=== PATIENT | male | born 1955 | race Caucasian/White ===

== ENCOUNTER 2016-07-02 07:24 | Inpatient (IN) | payer BC ==
[~2016-07-02] VITALS: Ht 175.3 cm; Wt 100.4 kg
[2016-07-02] VITALS (8 sets, daily range): BP systolic 101–157; BP diastolic 57–76
--- NOTE | ~2016-07-02 | PR ---
[place], [place] PROGRESS NOTE NAME: ANDI SALDANA UNIT #: [id number] ROOM: 519 DOCTOR: CONCEPCIÓN MONTOYA MD BIRTHDATE: [birth year] DOS: 07/05/2016 REASON FOR FOLLOWUP: Complicated UTI. SUBJECTIVE: The patient is feeling much better and wants to go home, could not have the stent removed because the urologist was not available. Afebrile, tolerating antibiotics, reports no side effects. A 10 review of systems otherwise negative. PHYSICAL EXAMINATION: VITAL SIGNS: Show temperature of 97.5, heart rate of 83, blood pressure of 160/98, respiratory rate of 20, pulse ox of 96 on room air. GENERAL APPEARANCE: Awake, alert, oriented to time, place and person. No acute distress. HEENT: Oral cavity moist and intact. NECK: Supple, no JVD, no lymphadenopathy. HEART: Regular rate and rhythm. S1, S2 normal. No murmurs, gallops or rubs. LUNGS: Clear to auscultation. Equal air entry bilaterally. ABDOMEN: Soft, nontender, midline wound with gem, proximal part with mild serosanguineous drainage. EXTREMITIES: Warm to touch. Pulses palpated. LABORATORY DATA: Reviewed. WBC of 6.9, hemoglobin of 9.4, platelets 332. Chemistry showing BUN of 8, creatinine of 0.62. MICROBIOLOGY: Urine culture showing Enterococcus faecalis, pansensitive. ASSESSMENT AND PLAN: 1. Acute complicated urinary tract infection with the left ureteral stent, currently on IV Zosyn. We will switch to p.o. Augmentin twice daily for 10 more days upon discharge. Follow up with Dr. Booker for left ureteral stent exchange. Follow up with myself if needed. Thank you for this consult. Okay to discharge from ID point of view. Please call with questions or concerns. 2. Slow healing postsurgical wound of the abdomen. Did not recommend any antibiotics for the same. Continue follow up with Dr. Marroquin for the same and waiting for healing from inside out. [place], [place] PROGRESS NOTE NAME: ANDI SALDANA UNIT #: [id number] ROOM: 519 DOCTOR: CONCEPCIÓN MONTOYA MD BIRTHDATE: [birth year] CONCEPCIÓN MONTOYA MD CM:LUIS ENRIQUE [phone] CONCEPCIÓN MONTOYA MD 07/06/16 0213 interface
--- NOTE | ~2016-07-02 | CON ---
[place], [place] REPORT OF CONSULTATION NAME: ANDI SALDANA UNIT #: [id number] ROOM: 519 DOCTOR: CONCEPCIÓN MONTOYA MD BIRTHDATE: [birth year] DOS: 07/03/2016 REASON FOR CONSULTATION: Possible UTI with pyelonephritis. [place], [place] REPORT OF CONSULTATION NAME: ANDI SALDANA UNIT #: [id number] ROOM: 519 DOCTOR: CONCEPCIÓN MONTOYA MD BIRTHDATE: [birth year] CONSULTING PHYSICIAN: Dr. Magen Larson. CHIEF COMPLAINT: This is a 60-year-old man who was admitted with a chief complaint of frequency in urination, nausea, and vomiting. HISTORY OF PRESENTING ILLNESS: A 60-year-old man with a recent history of open abdominal surgery on 06/15/2016 for partial small-bowel obstruction with anastomosis and history of rectal carcinoma with colostomy, now presenting with nausea and vomiting of 3 days' duration. He also reports increased frequency of urination. He had fever and shaking chills at home since Saturday. He also had mild cough with some productive sputum. He was brought in by [facility] for evaluation of nausea and vomiting. He had a temperature of 101 axillary in the Emergency Room and was admitted. He was started on IV ceftriaxone and ID was consulted for possible UTI. PAST MEDICAL HISTORY: Positive for history of rectal carcinoma, status post chemo and radiation, depression, diabetes mellitus, dyslipidemia, hypertension, hemangioma of the liver, hydronephrosis of left side, proteinuria, posttraumatic stress disorder, small-bowel obstruction. PAST SURGICAL HISTORY: History of ureteral stent, which is being changed every 6 weeks by Urology, cholecystectomy, colectomy with colostomy bag, and MediPort insertion. SOCIAL HISTORY: Alcohol abuse in the past, now no longer a drinker, former smoker, occasional marijuana use. FAMILY HISTORY: Father had esophageal cancer. Mother had GI bleed. ALLERGIES: No known drug allergies. HOME MEDICATIONS: Reviewed includes zolpidem, trazodone, Aldactone, Zoloft, K-tab, Prilosec, metformin, lisinopril, [place], hydrochlorothiazide, betamethasone topical, vitamin D, and atorvastatin. REVIEW OF SYSTEMS: A 14-point review of systems is otherwise negative unless otherwise specified in the HPI. PHYSICAL EXAMINATION: VITAL SIGNS: Showed temperature of 98.4, heart rate of 87, blood pressure 109/62, respiratory rate of 20, pulse ox of 97 on room air. GENERAL APPEARANCE: Awake, alert, oriented to time, place, and person, in no acute distress. HEENT: Oral cavity moist. NECK: Supple, no JVD, no lymphadenopathy. HEART: Regular rate and rhythm. S1 and S2 normal. No murmurs, gallops or rubs. LUNGS: Clear to auscultation. Equal air entry bilaterally. ABDOMEN: Soft, nontender, nondistended. Bowel sounds heard. Midline incision with gem with mild oozing at the proximal portion. No rebound tenderness or [place], [place] REPORT OF CONSULTATION NAME: ANDI SALDANA UNIT #: [id number] ROOM: [facility] DOCTOR: CONCEPCIÓN MONTOYA MD BIRTHDATE: [birth year] guarding, no CVA tenderness. EXTREMITIES: Warm to touch. Pulses palpated bilaterally equal. No evidence of skin ulcers or rashes. LABORATORY DATA: Reviewed. WBC of 12.7, it was 17.6 on admission; hemoglobin of 9.4; platelets was 330. Chemistry showing BUN of 9 and creatinine 0.80. AST of 18, ALT of 34, alkaline phosphatase of 133, lipase is normal. IMAGING: Reviewed. Ultrasound showing left ureteral stent with hydronephrosis, unchanged, minimal hydronephrosis. Chest x-ray, no infiltrates. MICROBIOLOGY: Urine culture pending. Blood culture pending. Urinalysis shows pyuria. ASSESSMENT AND PLAN: 1. Possible acute complicated urinary tract infection with ascending pyelonephritis. UA shows pyuria. Urine culture is pending, currently on ceftriaxone. We will switch him to Zosyn every q.6h. Wait for urine culture and adjust antibiotics accordingly. Urology is consulted. They are waiting for ultrasound results and culture results to be final. Plan to exchange of stent may be next week. 2. History of recent small-bowel obstruction and open abdominal surgery. The patient has a colostomy filled with a normal-looking stools. The incision still has not completely healed. If he continues to feel worse in the next 48 hours, I will obtain a CAT scan of the abdomen and pelvis with contrast to evaluate for any fistula. Thank you for this consult. I will continue to follow. CONCEPCIÓN MONTOYA MD CM:CONSTR:REPORT OF CONSULTATION 1653 08/10/16 1217 interface
--- NOTE | ~2016-07-02 | PR ---
[place], [place] PROGRESS NOTE NAME: ANDI SALDANA UNIT #: [id number] ROOM: 519 DOCTOR: JEFFERY MARROQUIN MD BIRTHDATE: [birth year] DOS: 07/05/2016 SUBJECTIVE: This is a patient that is a postop patient for 2 weeks who had a repair up of paracolostomy and large abdominal wall hernia. I had been seeing him in the clinic and his problem is upper end of the incision was leaking and I discussed with the family and told them to put an ostomy bag on it. However, it was not done. Now, he is in hospital for some other issues and they called me again. I saw him yesterday and I told the nurse to take the clips out and put a half-inch Steri-Strips on with pressure dressing on the incision where there is oozing. I saw him this morning again. They did a dressing on it, but is not pressure dressing. It is just the tapes are hanging loose. It is on the whole abdomen and no pressure dressing though we told the nurse to do it yesterday. I took the dressing off. There is minimal drainage. I showed the nurse how to do the dressing and I did put in an order also how to do it. The nurse is supposed to change it only that if the fluid dripping or leaking, otherwise if there is just spotting, I told them not to change, and I showed the nurse exactly how to do it. I put the first 4 x 4 folded three times and on top is a 4 x 4 folded twice and another 4 x 4 on top folded twice and put tape, covered it. Rest of the incision should be kept open because there is no leakage. Lower end incision oozes. It is not drainage, but because they did skin fold and macerated 2 edges together, so they should put a 4 x 4 just to keep the pressure off from 2 surface rubbing each other. From my stand plan, I think there is nothing going on surgically that I should take care of him. He is already on antibiotics, so doing a culture probably would not help, but they called me two times anyway and we did culture anyway. If it grows something different than what the antibiotic covering, I think we can change the antibiotic. He has a Ray catheter in, and I think that could have been removed, but I am told that he has a stent in his bladder and left ureter due to postradiation changes. Problem is that because of the catheter, he is not ambulating. He is lying in the bed for the last so many days. From my standpoint, I think there is nothing else that I could add on to and if there is some growth of bacteria in the wound, we can always change the antibiotics. [place], [place] PROGRESS NOTE NAME: ANDI SALDANA UNIT #: [id number] ROOM: [facility] DOCTOR: JEFFERY MARROQUIN MD BIRTHDATE: [birth year] Jeffery Marroquin MD CM:PNTRANS [phone] JEFFERY MARROQUIN MD 07/05/161938 interface
--- NOTE | ~2016-07-02 | CON ---
[place], [place] REPORT OF CONSULTATION NAME: ANDI SALDANA UNIT #: [id number] ROOM: 519 DOCTOR: JEFFERY MARROQUIN MD BIRTHDATE: [birth year] DOS: 07/04/2016 REASON FOR CONSULTATION: Abdominal wound. HISTORY OF PRESENT ILLNESS: The patient is status post repair of paracolostomy hernia and abdominal hernia. Postop he had developed some serous drainage from the upper end of the incision and I had seen him in clinic. I told his and him that they should put a small colostomy bag to get the fluid and hence do not have to then change dressing; however, they did not do it probably and now he is here with UTI I am told. When I went to see him, there is no bag on it, and the upper incision looks okay. There are still clips on there, a little bit of erythema there and some serous drainage coming out. PHYSICAL EXAMINATION: My exam is limited to abdominal wall. RECOMMENDATION: My recommendation is as it was before and we removed the clips today, put half-inch Steri-Strips. I told the nurse that if he drains, then we should put a colostomy bag on it rather than changing the dressing again and again. We will follow. Jeffery Marroquin MD CM:CONSTR:REPORT OF CONSULTATION 1343 08/10/16 1214 interface
[~2016-07-02 07:24] MED LIST: AMBIEN10 M1 PO; AMBIEN5 MG PO; ATORVASTATIN CA80 M1 PO; BETAMETHASONE D1 CR2 TP; CELEXA20 MG PO; COMPAZINE10 M1 PO; DITROPAN XL5 MG PO; K-TAB20 MEQ PO; LISINOPRIL5 MG PO; METFORMIN500 MG PO; NORCO 5-325 TA1 EACH PO; PRILOSEC20 M1 PO; TRAZODONE50 MG PO; VITAMIN D5000 I3 PO; VITAMINS FOR HA1 CAP PO; ZOFRAN8 M1 PO; ZOLOFT100 MG PO; [UNRECOGNIZED DRUG - OTHER] IV
[2016-07-02 07:55] LABS: HEMATOCRIT 35.3 % (42.0-52.0); HEMOGLOBIN 11.6 g/dl (14.0-18.0); MEAN CELL VOLUME 78.8 fl (80.0-94.0); MEAN CORPUSCULAR HGB 25.9 pg (27.0-31.0); MEAN CORPUSCULAR HGB CONC 32.9 g/dl (33.0-37.0); MEAN PLATELET VOLUME 8.8 fl (9.6-12.3); PLATELET COUNT AUTOMATED 436 10*3/uL (130-400); RED BLOOD COUNT 4.48 10*6/uL (4.50-5.90); RED CELL DISTRI WIDTH 14.6 % (0-14.5); WHITE BLOOD COUNT 17.6 10*3/uL (4.8-10.8)
[2016-07-02 08:10] LABS: ALBUMIN 2.7 gm/dl (3.1-4.5); ALKALINE PHOSPHATASE 164 U/L (45-117); BILIRUBIN, TOTAL 0.9 mg/dl (0.2-1.0); BUN 13 mg/dl (7-24); CARBON DIOXIDE 25 mmol/L (21-32); CHLORIDE 92 mmol/L (98-107); EST GLOM FILT AFRICAN AMERICAN > 60 ml/min; GLUCOSE 346 mg/dL (65-99); SGOT/AST 42 IU/L (3-35); SGPT/ALT 50 U/L (12-78); SODIUM 135 mmol/L (136-145); TOTAL PROTEIN 7.6 gm/dL (6.4-8.2)
[2016-07-02 08:11] LABS: HYPOCHROMIA SLIGHT; MICROCYTOSIS SLIGHT; MONOCYTE # 0.5 10*3/uL (0.1-1.0); NEUTROPHIL # 17.1 10*3/uL (2.3-7.9); NEUTROPHILS 97 % (47-73); OVALOCYTES FEW; PLATELET SUFFICIENCY HIGH (NORMAL); TOTAL CELLS COUNTED 100 #CELLS
[2016-07-02] MEDS ORDERED: ALDACTONE25 MG PO (08:20)
[2016-07-02] MEDS ORDERED: HYDROCHLOROTHIA25 M1 PO (08:20)
[2016-07-02 09:27] LABS: BILIRUBIN 1+ (NEGATIVE); BLOOD 3+ (NEGATIVE); CLARITY CLOUDY (CLEAR); COLOR ORANGE (YELLOW); GLUCOSE NEGATIVE (NEGATIVE); KETONE NEGATIVE (NEGATIVE); NITRITE POSITIVE (NEGATIVE); PROTEIN 3+ (NEGATIVE); SPECIFIC GRAVITY 1.025 (1.005-1.030)
[2016-07-02 09:36] LABS: LEUKO ESTERASE 1+ (NEGATIVE)
[2016-07-02 09:40] LABS: WBC TNTC wbc/hpf (0-5)
[2016-07-02 09:41] LABS: BACTERIA 2+; EPITHELIAL CELLS 30-40; URINE REFLEX COMMENT YES (NO)
[2016-07-02 09:52] LABS: LA>2 REFLEX 2 HR DRAW NOW
[2016-07-03] VITALS: BP 170/79
[2016-07-03 04:00] VITALS: BP 118/82
[2016-07-03 07:04] LABS: BASO % 0.2 % (0.0-1.0); EOS % 0.3 % (1.0-4.0); IG # 0.1 10*3/uL (0.0-0.1); LYMPH # 0.6 10*3/uL (1.3-4.4); LYMPH % 4.7 % (27.0-41.0); MEAN CELL VOLUME 80.5 fl (80.0-94.0); MEAN CORPUSCULAR HGB 26.2 pg (27.0-31.0); MEAN CORPUSCULAR HGB CONC 32.5 g/dl (33.0-37.0); MEAN PLATELET VOLUME 8.6 fl (9.6-12.3); MONO # 0.7 10*3/uL (0.1-1.0); MONO % 5.8 % (3.0-9.0); NEUT # 11.2 10*3/uL (2.3-7.9); NEUT % 88.4 % (47.0-73.0); PLATELET COUNT AUTOMATED 313 10*3/uL (130-400); RED BLOOD COUNT 3.59 10*6/uL (4.50-5.90); RED CELL DISTRI WIDTH 14.7 % (0-14.5); WHITE BLOOD COUNT 12.7 10*3/uL (4.8-10.8)
[2016-07-03 07:10] LABS: HEMATOCRIT 28.9 % (42.0-52.0); HEMOGLOBIN 9.4 g/dl (14.0-18.0)
[2016-07-03 07:27] LABS: ALBUMIN 2.2 gm/dl (3.1-4.5); ALKALINE PHOSPHATASE 133 U/L (45-117); BILIRUBIN, TOTAL 0.5 mg/dl (0.2-1.0); BUN 9 mg/dl (7-24); CARBON DIOXIDE 29 mmol/L (21-32); CHLORIDE 100 mmol/L (98-107); EST GLOM FILT AFRICAN AMERICAN > 60 ml/min; GLUCOSE 197 mg/dL (65-99); POTASSIUM 3.1 mmol/L (3.5-5.1); PROTHROMBIN TIME 10.5 SECONDS (9.0-12.4); SGOT/AST 18 IU/L (3-35); SGPT/ALT 35 U/L (12-78); SODIUM 139 mmol/L (136-145); TOTAL PROTEIN 6.7 gm/dL (6.4-8.2)
[2016-07-03 07:35] LABS: FREE T4 1.15 ng/dl (0.76-1.46); MAGNESIUM 1.8 mg/dL (1.5-2.1); THYROID STIM HORMONE (HS) 0.832 uIU/ml (0.358-4.75)
[2016-07-03 08:00] VITALS: BP 130/90
[2016-07-03 12:00] VITALS: BP 118/71
[2016-07-03 16:00] VITALS: BP 109/62
[2016-07-03 20:00] VITALS: BP 123/74
[2016-07-04] VITALS: BP 134/68
[2016-07-04 06:13] LABS: BASO % 0.2 % (0.0-1.0); EOS # 0.2 10*3/uL (0.0-0.4); EOS % 2.5 % (1.0-4.0); HEMOGLOBIN 8.8 g/dl (14.0-18.0); IG # 0.1 10*3/uL (0.0-0.1); LYMPH # 0.6 10*3/uL (1.3-4.4); LYMPH % 7.2 % (27.0-41.0); MEAN CELL VOLUME 80.8 fl (80.0-94.0); MEAN CORPUSCULAR HGB 26.3 pg (27.0-31.0); MEAN CORPUSCULAR HGB CONC 32.6 g/dl (33.0-37.0); MEAN PLATELET VOLUME 8.4 fl (9.6-12.3); MONO # 0.4 10*3/uL (0.1-1.0); MONO % 5.1 % (3.0-9.0); NEUT # 7.3 10*3/uL (2.3-7.9); NEUT % 84.3 % (47.0-73.0); PLATELET COUNT AUTOMATED 277 10*3/uL (130-400); RED BLOOD COUNT 3.34 10*6/uL (4.50-5.90); RED CELL DISTRI WIDTH 14.8 % (0-14.5); WHITE BLOOD COUNT 8.7 10*3/uL (4.8-10.8)
[2016-07-04 06:32] LABS: BUN 11 mg/dl (7-24); CARBON DIOXIDE 27 mmol/L (21-32); CHLORIDE 107 mmol/L (98-107); EST GLOM FILT AFRICAN AMERICAN > 60 ml/min; GLUCOSE 177 mg/dL (65-99); POTASSIUM 3.9 mmol/L (3.5-5.1); SODIUM 143 mmol/L (136-145)
[2016-07-04 12:00] VITALS: BP 125/70
[2016-07-04 16:00] VITALS: BP 136/84
[2016-07-04 20:00] VITALS: BP 135/83
[2016-07-05] VITALS: BP 143/81
[2016-07-05 06:48] LABS: BASO % 0.4 % (0.0-1.0); EOS # 0.3 10*3/uL (0.0-0.4); EOS % 4.5 % (1.0-4.0); HEMATOCRIT 29.4 % (42.0-52.0); HEMOGLOBIN 9.4 g/dl (14.0-18.0); IG # 0.1 10*3/uL (0.0-0.1); LYMPH # 0.5 10*3/uL (1.3-4.4); LYMPH % 7.7 % (27.0-41.0); MEAN CELL VOLUME 80.5 fl (80.0-94.0); MEAN CORPUSCULAR HGB 25.8 pg (27.0-31.0); MEAN PLATELET VOLUME 8.8 fl (9.6-12.3); MONO # 0.4 10*3/uL (0.1-1.0); MONO % 5.1 % (3.0-9.0); NEUT # 5.6 10*3/uL (2.3-7.9); NEUT % 81.3 % (47.0-73.0); PLATELET COUNT AUTOMATED 332 10*3/uL (130-400); RED BLOOD COUNT 3.65 10*6/uL (4.50-5.90); RED CELL DISTRI WIDTH 14.6 % (0-14.5); WHITE BLOOD COUNT 6.9 10*3/uL (4.8-10.8)
[2016-07-05 07:16] LABS: BUN 8 mg/dl (7-24); CARBON DIOXIDE 28 mmol/L (21-32); CHLORIDE 105 mmol/L (98-107); EST GLOM FILT AFRICAN AMERICAN > 60 ml/min; GLUCOSE 168 mg/dL (65-99); MAGNESIUM 1.6 mg/dL (1.5-2.1); PHOSPHOROUS 2.4 mg/dL (2.5-4.9); POTASSIUM 3.9 mmol/L (3.5-5.1); SODIUM 143 mmol/L (136-145)
[2016-07-05 08:00] VITALS: BP 142/84
[2016-07-05 12:00] VITALS: BP 160/98
[2016-07-05] MEDS ORDERED: CIPRO500 MG PO (12:54)
[2016-07-05] MEDS ORDERED: OXYBUTYNIN CHLOR5 MG PO (12:54)
[2016-07-05] MEDS ORDERED: AUGMENTIN 875875 MG PO (16:35)
[2016-07-06] MEDS ORDERED: PYRIDIUM200 M1 PO (12:26)
[2016-07-09] MEDS ORDERED: OXYBUTYNIN CHLOR5 M1 PO (10:33)
[2016-08-07] MEDS ORDERED: B12,B-12,B 12500 MC1 PO (12:46)
[2016-08-07] MEDS ORDERED: TAMIFLU 75MG CA75 MG PO (12:46)
== END 2016-07-05 17:10 | disposition home or self-care (01) | DRG 871 ==
LOC: ED 07:24 → EDHOLD 09:53 → 5E 10:09
PROVIDERS: Emergency Medicine; Hospitalist
DX: A41.9 Sepsis, unspecified organism (principal); E43 Unspecified severe protein-calorie malnutrition; N39.0 Urinary tract infection, site not specified; N13.1 Hydronephrosis with ureteral stricture, not elsewhere classified; E87.1 Hypo-osmolality and hyponatremia; N12 Tubulo-interstitial nephritis, not specified as acute or chronic; R65.20 Severe sepsis without septic shock; I10 Essential (primary) hypertension; E78.5 Hyperlipidemia, unspecified; E11.65 Type 2 diabetes mellitus with hyperglycemia; E87.6 Hypokalemia; D47.3 Essential (hemorrhagic) thrombocythemia; D64.9 Anemia, unspecified; Z90.49 Acquired absence of other specified parts of digestive tract; Z87.891 Personal history of nicotine dependence; Z80.2 Family history of malignant neoplasm of other respiratory and intrathoracic organs; Z79.899 Other long term (current) drug therapy; Z68.32 Body mass index [BMI] 32.0-32.9, adult

== ENCOUNTER → 2016-07-16 | Outpatient (CLI) | payer BC ==
[~2016-07-16] MED LIST changes: +ALDACTONE25 MG PO; +AUGMENTIN 875875 MG PO; +B12,B-12,B 12500 MC1 PO; +CIPRO500 MG PO; +HYDROCHLOROTHIA25 M1 PO; +OXYBUTYNIN CHLOR5 M1 PO; +OXYBUTYNIN CHLOR5 MG PO; +PYRIDIUM200 M1 PO; +TAMIFLU 75MG CA75 MG PO
[2016-07-16 12:39] LABS: BASO % 0.4 % (0.0-1.0); EOS # 0.3 10*3/uL (0.0-0.4); EOS % 4.7 % (1.0-4.0); HEMATOCRIT 36.6 % (42.0-52.0); HEMOGLOBIN 11.6 g/dl (14.0-18.0); LYMPH % 14.5 % (27.0-41.0); MEAN CELL VOLUME 81.3 fl (80.0-94.0); MEAN CORPUSCULAR HGB 25.8 pg (27.0-31.0); MEAN CORPUSCULAR HGB CONC 31.7 g/dl (33.0-37.0); MEAN PLATELET VOLUME 8.8 fl (9.6-12.3); MONO # 0.3 10*3/uL (0.1-1.0); MONO % 3.9 % (3.0-9.0); NEUT # 5.4 10*3/uL (2.3-7.9); NEUT % 76.1 % (47.0-73.0); PLATELET COUNT AUTOMATED 281 10*3/uL (130-400); RED CELL DISTRI WIDTH 15.6 % (0-14.5); WHITE BLOOD COUNT 7.1 10*3/uL (4.8-10.8)
[2016-07-16 13:19] LABS: ALBUMIN 3.4 gm/dl (3.1-4.5); ALKALINE PHOSPHATASE 133 U/L (45-117); BILIRUBIN, TOTAL 0.3 mg/dl (0.2-1.0); BUN 8 mg/dl (7-24); CARBON DIOXIDE 30 mmol/L (21-32); CEA 1.8 ng/mL; CHLORIDE 101 mmol/L (98-107); EST GLOM FILT AFRICAN AMERICAN > 60 ml/min; GLUCOSE 192 mg/dL (65-99); POTASSIUM 3.8 mmol/L (3.5-5.1); SGOT/AST 18 IU/L (3-35); SGPT/ALT 33 U/L (12-78); SODIUM 139 mmol/L (136-145); TOTAL PROTEIN 7.3 gm/dL (6.4-8.2)
== END | disposition home or self-care (01) ==
LOC: LAB 12:15
PROVIDERS: Internal Medicine Hematology & Oncology
DX: C20 Malignant neoplasm of rectum (principal)

== ENCOUNTER → 2016-11-20 | Outpatient (CLI) | payer BC ==
[2016-11-20 11:02] LABS: EST GLOM FILT AFRICAN AMERICAN > 60 ml/min
== END | disposition home or self-care (01) ==
LOC: LAB 10:20
PROVIDERS: Internal Medicine Hematology & Oncology
DX: C20 Malignant neoplasm of rectum (principal)

== ENCOUNTER → 2016-11-27 | Outpatient (CLI) | payer BC | END | disposition home or self-care (01) | LOC: CT 02:28 | DX: C20 Malignant neoplasm of rectum (principal); K43.9 Ventral hernia without obstruction or gangrene; Z90.49 Acquired absence of other specified parts of digestive tract; Z96.0 Presence of urogenital implants ==

== ENCOUNTER → 2017-03-12 | Outpatient (CLI) | payer OTHER ==
[2017-03-12 12:52] LABS: BASO % 0.4 % (0.0-1.0); EOS # 0.4 10*3/uL (0.0-0.4); EOS % 5.7 % (1.0-4.0); HEMATOCRIT 33.6 % (42.0-52.0); HEMOGLOBIN 10.8 g/dl (14.0-18.0); LYMPH # 0.9 10*3/uL (1.3-4.4); LYMPH % 11.8 % (27.0-41.0); MEAN CORPUSCULAR HGB 25.7 pg (27.0-31.0); MEAN CORPUSCULAR HGB CONC 32.1 g/dl (33.0-37.0); MONO # 0.4 10*3/uL (0.1-1.0); MONO % 4.5 % (3.0-9.0); NEUT # 5.9 10*3/uL (2.3-7.9); NEUT % 77.2 % (47.0-73.0); PLATELET COUNT AUTOMATED 310 10*3/uL (130-400); RED CELL DISTRI WIDTH 15.3 % (0-14.5); WHITE BLOOD COUNT 7.7 10*3/uL (4.8-10.8)
[2017-03-12 13:27] LABS: ALKALINE PHOSPHATASE 127 U/L (45-117); BUN 12 mg/dl (7-24); CHLORIDE 104 mmol/L (98-107); CREATININE 0.96 mg/dL (0.70-1.30); POTASSIUM 3.7 mmol/L (3.5-5.1); SGOT/AST 10 IU/L (3-35); SGPT/ALT 20 U/L (12-78); SODIUM 139 mmol/L (136-145); TOTAL PROTEIN 7.2 gm/dL (6.4-8.2)
[2017-03-12 13:29] LABS: CEA 3.4 ng/mL
== END | disposition home or self-care (01) ==
LOC: LAB 12:10
PROVIDERS: Internal Medicine Hematology & Oncology
DX: C20 Malignant neoplasm of rectum (principal)

== ENCOUNTER → 2017-04-04 | Outpatient (CLI) | payer OTHER ==
[2017-04-04 13:22] LABS: BILIRUBIN NEGATIVE (NEGATIVE); BLOOD NEGATIVE (NEGATIVE); CLARITY CLEAR (CLEAR); COLOR YELLOW (YELLOW); GLUCOSE 1+ (NEGATIVE); KETONE NEGATIVE (NEGATIVE); LEUKO ESTERASE NEGATIVE (NEGATIVE); NITRITE NEGATIVE (NEGATIVE); PH 5.5 (5.0-9.0); SPECIFIC GRAVITY 1.025 (1.005-1.030); UROBILINOGEN 0.2 E.U./dl (0.2-1.0)
[2017-04-04 13:52] LABS: MUCOUS 1+
== END | disposition home or self-care (01) ==
LOC: LAB 00:44
PROVIDERS: Urology
DX: N13.30 Unspecified hydronephrosis (principal); N13.8 Other obstructive and reflux uropathy

== ENCOUNTER → 2017-07-09 | Outpatient (CLI) | payer OTHER ==
[2017-07-09 11:48] LABS: BASO % 0.3 % (0.0-1.0); EOS # 0.1 10*3/uL (0.0-0.4); EOS % 1.7 % (1.0-4.0); HEMOGLOBIN 12.9 g/dl (14.0-18.0); LYMPH % 13.6 % (27.0-41.0); MEAN CELL VOLUME 77.2 fl (80.0-94.0); MEAN CORPUSCULAR HGB 26.2 pg (27.0-31.0); MEAN CORPUSCULAR HGB CONC 33.9 g/dl (33.0-37.0); MONO # 0.3 10*3/uL (0.1-1.0); MONO % 4.8 % (3.0-9.0); NEUT # 5.6 10*3/uL (2.3-7.9); NEUT % 79.2 % (47.0-73.0); PLATELET COUNT AUTOMATED 216 10*3/uL (130-400); RED BLOOD COUNT 4.92 10*6/uL (4.50-5.90); RED CELL DISTRI WIDTH 15.7 % (0-14.5); WHITE BLOOD COUNT 7.1 10*3/uL (4.8-10.8)
[2017-07-09 12:11] LABS: ALBUMIN 3.6 gm/dl (3.1-4.5); ALKALINE PHOSPHATASE 106 U/L (45-117); BUN 13 mg/dl (7-24); CHLORIDE 102 mmol/L (98-107); CREATININE 0.81 mg/dL (0.70-1.30); POTASSIUM 3.7 mmol/L (3.5-5.1); SGOT/AST 15 IU/L (3-35); SGPT/ALT 27 U/L (12-78); SODIUM 139 mmol/L (136-145); TOTAL PROTEIN 7.4 gm/dL (6.4-8.2)
[2017-07-09 12:13] LABS: CEA 14.7 ng/mL
== END | disposition home or self-care (01) ==
LOC: LAB 11:28
PROVIDERS: Internal Medicine Hematology & Oncology
DX: C18.9 Malignant neoplasm of colon, unspecified (principal)

== ENCOUNTER → 2017-07-12 | Outpatient (CLI) | payer OTHER | END | disposition home or self-care (01) | LOC: CT 02:12 | DX: C20 Malignant neoplasm of rectum (principal); D18.00 Hemangioma unspecified site; K46.9 Unspecified abdominal hernia without obstruction or gangrene; Z90.89 Acquired absence of other organs; Z90.49 Acquired absence of other specified parts of digestive tract ==

== ENCOUNTER → 2017-08-12 | Outpatient (CLI) | payer OTHER ==
[2017-08-12 17:02] LABS: CEA 18.3 ng/mL
== END | disposition home or self-care (01) ==
LOC: LAB 15:48
PROVIDERS: Internal Medicine Hematology & Oncology
DX: C18.9 Malignant neoplasm of colon, unspecified (principal)

== ENCOUNTER → 2017-12-23 | Outpatient (CLI) | payer OTHER ==
[2017-12-23 09:57] LABS: BASO % 0.3 % (0.0-1.0); EOS # 0.2 10*3/uL (0.0-0.4); EOS % 2.4 % (1.0-4.0); HEMATOCRIT 38.8 % (42.0-52.0); HEMOGLOBIN 12.5 g/dl (14.0-18.0); LYMPH # 1.1 10*3/uL (1.3-4.4); LYMPH % 16.6 % (27.0-41.0); MEAN CELL VOLUME 81.2 fl (80.0-94.0); MEAN CORPUSCULAR HGB 26.2 pg (27.0-31.0); MEAN CORPUSCULAR HGB CONC 32.2 g/dl (33.0-37.0); MONO # 0.3 10*3/uL (0.1-1.0); MONO % 4.8 % (3.0-9.0); NEUT # 5.1 10*3/uL (2.3-7.9); NEUT % 75.6 % (47.0-73.0); PLATELET COUNT AUTOMATED 227 10*3/uL (130-400); RED BLOOD COUNT 4.78 10*6/uL (4.50-5.90); RED CELL DISTRI WIDTH 15.5 % (0-14.5); WHITE BLOOD COUNT 6.7 10*3/uL (4.8-10.8)
[2017-12-23 10:26] LABS: CHLORIDE 100 mmol/L (98-107); POTASSIUM 3.9 mmol/L (3.5-5.1); SODIUM 137 mmol/L (136-145)
[2017-12-23 10:42] LABS: ALBUMIN 3.6 gm/dl (3.1-4.5); ALKALINE PHOSPHATASE 112 U/L (45-117); BUN 11 mg/dl (7-24); CHOLESTEROL 158 mg/dL (<200); CREATININE 0.82 mg/dL (0.70-1.30); HDL CHOLESTEROL 39 mg/dl (40-60); SGOT/AST 16 IU/L (3-35); SGPT/ALT 34 U/L (12-78); TOTAL PROTEIN 7.5 gm/dL (6.4-8.2); TRIGLYCERIDES 711 mg/dl (<150)
== END | disposition home or self-care (01) ==
LOC: LAB 09:39
PROVIDERS: Internal Medicine
DX: I10 Essential (primary) hypertension (principal); E78.00 Pure hypercholesterolemia, unspecified

== ENCOUNTER → 2018-04-08 | Outpatient (CLI) | payer OTHER ==
[2018-04-08 15:30] LABS: ALBUMIN 3.6 gm/dl (3.1-4.5); ALKALINE PHOSPHATASE 101 U/L (45-117); BUN 15 mg/dl (7-24); CHLORIDE 106 mmol/L (98-107); CREATININE 0.77 mg/dL (0.70-1.30); POTASSIUM 3.5 mmol/L (3.5-5.1); SGOT/AST 17 IU/L (3-35); SGPT/ALT 30 U/L (12-78); SODIUM 143 mmol/L (136-145); TOTAL PROTEIN 7.2 gm/dL (6.4-8.2)
[2018-04-08 16:33] LABS: BASO % 0.3 % (0.0-1.0); EOS # 0.2 10*3/uL (0.0-0.4); EOS % 1.8 % (1.0-4.0); HEMATOCRIT 38.2 % (42.0-52.0); HEMOGLOBIN 12.5 g/dl (14.0-18.0); LYMPH # 1.3 10*3/uL (1.3-4.4); LYMPH % 13.9 % (27.0-41.0); MEAN CELL VOLUME 79.3 fl (80.0-94.0); MEAN CORPUSCULAR HGB 25.9 pg (27.0-31.0); MEAN CORPUSCULAR HGB CONC 32.7 g/dl (33.0-37.0); MEAN PLATELET VOLUME 9.1 fl (9.6-12.3); MONO # 0.5 10*3/uL (0.1-1.0); MONO % 5.3 % (3.0-9.0); NEUT # 7.3 10*3/uL (2.3-7.9); PLATELET COUNT AUTOMATED 259 10*3/uL (130-400); RED BLOOD COUNT 4.82 10*6/uL (4.50-5.90); RED CELL DISTRI WIDTH 15.6 % (0-14.5); WHITE BLOOD COUNT 9.4 10*3/uL (4.8-10.8)
== END | disposition home or self-care (01) ==
LOC: LAB 14:35
PROVIDERS: Nurse Practitioner Adult Health
DX: C20 Malignant neoplasm of rectum (principal)

== ENCOUNTER 2018-07-21 02:26 | Emergency (ER) | payer OTHER, MEDICARE ==
[~2018-07-21] VITALS: Ht 175.2 cm; Wt 106.6 kg
[~2018-07-21 02:26] MED LIST changes: +GLUCOPHAGE1000 MG PO; -METFORMIN500 MG PO; -VITAMIN D5000 I3 PO; +VITAMIN D5000 UNI1 PO
[2018-07-21 03:16] LABS: HEMATOCRIT 32.1 % (42.0-52.0); HEMOGLOBIN 10.1 g/dl (14.0-18.0); MEAN CORPUSCULAR HGB 23.3 pg (27.0-31.0); MEAN CORPUSCULAR HGB CONC 31.5 g/dl (33.0-37.0); MEAN PLATELET VOLUME 8.5 fl (9.6-12.3); PLATELET COUNT AUTOMATED 305 10*3/uL (130-400); RED BLOOD COUNT 4.34 10*6/uL (4.50-5.90); RED CELL DISTRI WIDTH 16.5 % (0-14.5); WHITE BLOOD COUNT 15.7 10*3/uL (4.8-10.8)
[2018-07-21 03:31] LABS: ALBUMIN 2.7 gm/dl (3.1-4.5); CREATININE 2.65 mg/dL (0.70-1.30); TOTAL PROTEIN 7.3 gm/dL (6.4-8.2)
[2018-07-21 03:37] LABS: MICROCYTOSIS SLIGHT; OVALOCYTES FEW; PLATELET SUFFICIENCY NORMAL (NORMAL); TOTAL CELLS COUNTED 100 #CELLS
[2018-09-09] MEDS ORDERED: ATIVAN0.5 MG PO (17:40)
== END 2018-07-21 07:49 | disposition short-term general hospital (02) ==
LOC: ED 02:26
PROVIDERS: Emergency Medicine
DX: K65.1 Peritoneal abscess (principal); E11.9 Type 2 diabetes mellitus without complications; E78.5 Hyperlipidemia, unspecified; I10 Essential (primary) hypertension; E66.9 Obesity, unspecified; Z79.899 Other long term (current) drug therapy; Z90.49 Acquired absence of other specified parts of digestive tract; Z87.891 Personal history of nicotine dependence; Z93.3 Colostomy status

== ENCOUNTER 2018-08-03 20:55 | Inpatient (IN) | payer OTHER, MEDICARE ==
[~2018-08-03] VITALS: Ht 175.2 cm; Wt 100.4 kg
[2018-08-03 20:55] VITALS: BP 185/94
[2018-08-03 21:13] VITALS: BP 148/94
[2018-08-03 21:20] VITALS: BP 163/94
[2018-08-03 21:20] LABS: BASO % 0.3 % (0.0-1.0); EOS # 0.2 10*3/uL (0.0-0.4); EOS % 1.4 % (1.0-4.0); HEMATOCRIT 32.1 % (42.0-52.0); HEMOGLOBIN 9.9 g/dl (14.0-18.0); LYMPH # 1.1 10*3/uL (1.3-4.4); LYMPH % 6.8 % (27.0-41.0); MEAN CELL VOLUME 75.2 fl (80.0-94.0); MEAN CORPUSCULAR HGB 23.2 pg (27.0-31.0); MEAN CORPUSCULAR HGB CONC 30.8 g/dl (33.0-37.0); MEAN PLATELET VOLUME 8.7 fl (9.6-12.3); MONO # 0.5 10*3/uL (0.1-1.0); NEUT # 13.7 10*3/uL (2.3-7.9); PLATELET COUNT AUTOMATED 504 10*3/uL (130-400); RED BLOOD COUNT 4.27 10*6/uL (4.50-5.90); RED CELL DISTRI WIDTH 17.6 % (0-14.5); WHITE BLOOD COUNT 15.6 10*3/uL (4.8-10.8)
[2018-08-03 21:42] LABS: ALBUMIN 2.5 gm/dl (3.1-4.5); CREATININE 2.48 mg/dL (0.70-1.30); POTASSIUM 3.8 mmol/L (3.5-5.1); TOTAL PROTEIN 7.4 gm/dL (6.4-8.2)
[2018-08-03 21:48] VITALS: BP 163/93
[2018-08-03 22:06] VITALS: BP 173/91
--- NOTE | 2018-08-03 22:13 | NUR ---
1 MG DILUADID GIVEN AT 2114 IV SLOW PUSH OVER 1 MIN PT HAD NOTED RESP DEPRESSION TO RATE OF 8 PT MAINTAINED PULSE OX 96 % RA PT RATED PAIN AT 0 HRS AT 8/10 STATING PAIN WAS RETURNING RESP WERE AT 13/MIN PT GIVEN 2ND MG IV SLOW PUSH SPOUSE AT BEDSIDE WILL CONTINUE TO MONITOR
--- NOTE | 2018-08-03 22:41 | NUR ---
PT REPORTS PAIN REMAINS AT 5/10
[2018-08-03 23:10] VITALS: BP 168/96
[2018-08-03 23:13] LABS: BILIRUBIN NEGATIVE (NEGATIVE); BLOOD 2+ (NEGATIVE); CLARITY SL CLOUDY (CLEAR); COLOR YELLOW (YELLOW); GLUCOSE NEGATIVE (NEGATIVE); KETONE NEGATIVE (NEGATIVE); LEUKO ESTERASE 3+ (NEGATIVE); NITRITE NEGATIVE (NEGATIVE); UROBILINOGEN 0.2 E.U./dl (0.2-1.0)
[2018-08-03 23:24] LABS: WBC 41-50 wbc/hpf (0-5)
[2018-08-03 23:25] LABS: YEAST 2+
[2018-08-04 02:00] VITALS: BP 167/93
--- NOTE | 2018-08-04 02:00 | NUR ---
Time: 199 A 62 year old MALE admitted to under services of AURA WOODS DO, Pt. arrived via OTHER from ER. Chief complaint: AB PAIN. DMITRY RÍOS
--- NOTE | 2018-08-04 02:32 | NUR ---
PATIENT IS UNAWARE OF MEDICATIONS HE TAKES AT HOME.
--- NOTE | 2018-08-04 06:47 | NUR ---
DR. ALCANTARA NOTIFIED OF CONSULT. SHE STATED THAT SHE WOULD BE IN TO SEE PATIENT LATER TODAY AND DECIDE FURTHER TX.
[2018-08-04 07:10] LABS: BASO % 0.3 % (0.0-1.0); EOS # 0.2 10*3/uL (0.0-0.4); EOS % 1.7 % (1.0-4.0); HEMATOCRIT 30.1 % (42.0-52.0); LYMPH # 0.8 10*3/uL (1.3-4.4); LYMPH % 7.2 % (27.0-41.0); MEAN CELL VOLUME 76.4 fl (80.0-94.0); MEAN CORPUSCULAR HGB 22.8 pg (27.0-31.0); MEAN CORPUSCULAR HGB CONC 29.9 g/dl (33.0-37.0); MEAN PLATELET VOLUME 8.7 fl (9.6-12.3); MONO # 0.4 10*3/uL (0.1-1.0); MONO % 3.5 % (3.0-9.0); NEUT # 9.9 10*3/uL (2.3-7.9); NEUT % 86.6 % (47.0-73.0); PLATELET COUNT AUTOMATED 401 10*3/uL (130-400); RED BLOOD COUNT 3.94 10*6/uL (4.50-5.90); RED CELL DISTRI WIDTH 17.9 % (0-14.5); WHITE BLOOD COUNT 11.5 10*3/uL (4.8-10.8)
[2018-08-04 07:29] LABS: CREATININE 2.66 mg/dL (0.70-1.30); PHOSPHOROUS 4.7 mg/dL (2.5-4.9); POTASSIUM 3.7 mmol/L (3.5-5.1)
[2018-08-04 08:00] VITALS: BP 155/76
--- NOTE | 2018-08-04 09:00 | NUR ---
Third Loader in to talk to patient. Patient states lives at home with . There are few steps in the home. Physician: el mccord Pharmacy: [facility] [place] [facility]: none Patient's level of ADLs: INDEPENDENT Patient has working utilities: all working DME: none Follow-up physician's appointment after d/c: will be made by hospitalist nurse director upon discharge Does patient want to access PORTAL?: no Discharge plan discussed with patient, patient lives at home with , he states he is independent in adls and ambulation, patient states he will be deya home when able and denies any home needs. NICOLASA RHODES
--- NOTE | 2018-08-04 09:02 | NUR ---
PATIENT MEDICATED WITH NORCO AT THIS TIME FOR COMPLAINTS OF ABDOMINAL PAIN. PATIENT RATES HIS PAIN AN 8/10. WILL MONITOR FOR EFFECTIVENESS.
--- NOTE | 2018-08-04 09:45 | NUR ---
WOUND CARE PICTURES TAKEN AT THIS TIME.
--- NOTE | 2018-08-04 09:56 | NUR ---
LESANDI Francois [id number] Please refer to the physician's history and physical for past medical history, comorbid conditions, and allergies. Diagnosis: INTRACTABLE PAIN [place] Score: , WOUND DESCRIPTIONS: Location of the wound: right upper quadrant Thickness: Full Size: 0.8cm x 1.7cm x 0.1cm Tunneling: none Undermining: none Sinus Tract: none Presence of Exudate: Purulent Amount: Light Color: Yellow Odor: None Periwound Skin Appearance: Normal Wound edges: approximated Pain (associated with wound): none at time of assessment How does patient state this happened? pt stated he had for a while Location of the wound: right middle lower abdomen Thickness: Full Size: 1.9cm x 1.5cm x 0.1cm Tunneling: none Undermining: none Sinus Tract: none Presence of Exudate: Purulent Amount: Light Color: Yellow, brown Odor: None Periwound Skin Appearance: Normal Wound edges: approximated Pain (associated with wound): none at time of assessment How does patient state this happened? pt stated had for a while Surface the patient is resting on: Isoflex SKIN PREVENTION RECOMMENDATION: 1. Pressure redistribution support surface as appropriate 2. Elevate heels 3. Remove boots/TEDS every shift and reapply 4. Head of bed 30 degrees as tolerated 5. Assess nutrition and hydration 6. Manage moisture 7. Avoid the use of containment devices while in bed 8. Use absorptive products on surfaces limit layers of linens on bed 9. Turn and reposition every 1-2 hours in bed and every 1 hour in chair as tolerated 10. Weight shifts every 15 minutes while up in chair 11. Offloading with pillows or device to keep heels elevated off bed 12. Monitor skin at least every shift 13. Inspect under medical devices twice a day WOUND TREATMENT RECOMMENDATIONS: Consult Bhumi DENIS- for possible debridement. Full thickness guidelines: Cleanse right upper quadrant and right middle lower abdomen with nss and apply sureprep around the wound therahoney to wound bed and cover with optifoam gentle. Patient requesting when he is discharged to care for these areas at home.
[2018-08-04] MEDS ORDERED: DAILY VITE1 EACH PO (11:03)
[2018-08-04] MEDS ORDERED: FEOSOL325 MG PO (11:04)
[2018-08-04] MEDS ORDERED: ASPIRIN CHEWABL81 MG PO (11:04)
[2018-08-04] MEDS ORDERED: GLIPIZIDE5 MG PO (11:05)
[2018-08-04] MEDS ORDERED: TRAD5TAB1 PO (11:05)
[2018-08-04] MEDS ORDERED: SEROQUEL100 MG PO (11:06)
[2018-08-04] MEDS ORDERED: STIVARGA PO (11:08)
[2018-08-04] MEDS ORDERED: DITROPAN XL5 MG PO (11:11)
[2018-08-04 12:00] VITALS: BP 153/77
--- NOTE | 2018-08-04 12:21 | NUR ---
ATTEMPTED TO CALL RENATE OROSCO AT THIS TIME TO MAKE AWARE OF NEW CONSULT. NO ANSWERS. WILL ATTEMPT AGAIN LATER
--- NOTE | 2018-08-04 12:44 | NUR ---
WOUNDS DRESSINGS PLACED ON PATIENT AT THIS TIME.
--- NOTE | 2018-08-04 13:18 | NUR ---
RENAL US SHOWED THAT BUTT WAS NOT IN THE CORRECT SPOT. BALLOON DEFLATED, BUTT ADVANCED, 300CC URINE CAME OUT AT THIS TIME. BALLOON REFLATED. NEW STICKER PLACED ON PATIENTS LEG TO KEEP BUTT IN PLACE. PATIENT TOLERATED WELL.
[2018-08-04 16:00] VITALS: BP 143/77
[2018-08-04 20:00] VITALS: BP 172/95
--- NOTE | 2018-08-04 22:25 | NUR ---
DEPART TIME TO FLOOR IS APROX
[2018-08-05] VITALS: BP 137/85; BP 173/93
[2018-08-05 00:55] VITALS: BP 152/70; BP 152/90
[2018-08-05 02:31] LABS: URINE CREATININE RANDOM 17.2 mg/dL
--- NOTE | 2018-08-05 05:17 | NUR ---
Recommend follow up for wound care in outpatient setting patient refused at this time.
[2018-08-05 06:41] LABS: ALBUMIN 2.5 gm/dl (3.1-4.5); POTASSIUM 3.4 mmol/L (3.5-5.1)
[2018-08-05 06:45] LABS: CREATININE 1.47 mg/dL (0.70-1.30); TOTAL PROTEIN 7.3 gm/dL (6.4-8.2)
[2018-08-05 08:00] VITALS: BP 143/91
--- NOTE | 2018-08-05 09:59 | NUR ---
24 HR chart check completed.
--- NOTE | 2018-08-05 10:15 | NUR ---
BLADDER SCANNED PER SPEEDY'S REQUEST FOR 0 CCs OF URINE.
[2018-08-05 12:00] VITALS: BP 141/89
[2018-08-05 16:00] VITALS: BP 136/80
--- NOTE | 2018-08-05 19:26 | NUR ---
ASSUMED CARE OF PT AT THIS TIME. PATIENT RESTING IN BED WITH EYES CLOSED, EASILY AROUSABLE. PT DENIES ANY PAIN/SOB AT PRESENT TIME. NO OTHER COMPLAINTS VOICED. WILL MONITOR. CALL LIGHT IN REACH.
[2018-08-05 20:00] VITALS: BP 121/63
--- NOTE | 2018-08-05 21:30 | NUR ---
SCHEDULED PO OXY GIVEN PER ORDER. PATIENT C/O SOME BL HIP PAIN. WILL MONITOR EFFECTIVENESS. CALL LIGHT IN REACH.
--- NOTE | 2018-08-05 23:15 | NUR ---
EARLIER MEDICATION EFFECTIVE. PATIENT SLEEPING IN BED, EASILY AROUSABLE. NO S/S OF DISTRESS NOTED. WILL MONITOR.
[2018-08-06] VITALS: BP 130/73
[2018-08-06 07:00] LABS: ALBUMIN 2.3 gm/dl (3.1-4.5); BUN 13 mg/dl (7-24); CHLORIDE 110 mmol/L (98-107); POTASSIUM 3.7 mmol/L (3.5-5.1); SODIUM 144 mmol/L (136-145)
[2018-08-06 07:03] LABS: ALKALINE PHOSPHATASE 99 U/L (45-117); CREATININE 1.24 mg/dL (0.70-1.30); SGOT/AST 40 IU/L (3-35); SGPT/ALT 45 U/L (12-78); TOTAL PROTEIN 6.7 gm/dL (6.4-8.2)
--- NOTE | 2018-08-06 07:30 | NUR ---
Patient resting quietly with no c/o discomfort. Respirations easy and regular. Vital signs stable. No overt distress. MITZY DELGADO
[2018-08-06 08:00] VITALS: BP 128/80
--- NOTE | 2018-08-06 09:00 | NUR ---
case management visits with patient, patient will be going home when medically stable and denies any home needs
[2018-08-06 12:00] VITALS: BP 145/83
--- NOTE | 2018-08-06 12:00 | NUR ---
Patient resting quietly with no c/o discomfort. Respirations easy and regular. Vital signs stable. No overt distress. MITZY DELGADO
[2018-08-06 12:08] LABS: CREATININE,URINE 19.9 mg/dL (Not Estab.); MICRO ALBUMIN/CRE RATIO 13646.7 (0.0-30.0)
[2018-08-06] MEDS ORDERED: OXYCODONE HCL5 MG PO (12:12)
[2018-08-06] MEDS ORDERED: OXYCONTIN10 M1 PO (12:12)
[2018-08-06] MEDS ORDERED: FLUCONAZOLE100 MG PO (12:15)
[2018-08-06 16:00] VITALS: BP 124/86
--- NOTE | 2018-08-06 17:00 | NUR ---
BUTT CATHETER D/C'D, RESTARTED AND HOOKED UP TO LEG BAG. DRAINAGE BAG FOR NIGHT GIVEN. ADITYA INSTRUCTED ON SWITCHING IT OVER AT NIGHT OR DURING RECLINED POSITIONS.
--- NOTE | 2018-08-06 17:01 | NUR ---
PT REFUSING WOUND PHOTOS.
--- NOTE | 2018-08-06 17:15 | NUR ---
LEAVING IN CARE OF .
[2018-09-09] MEDS ORDERED: ATIVAN0.5 MG PO (17:40)
== END 2018-08-06 17:15 | disposition home or self-care (01) | DRG 871 ==
LOC: ED 20:55 → 4E 08-04 00:08 → EDHOLD 08-04 00:08 → 4E 08-04 00:14
PROVIDERS: Emergency Medicine; Internal Medicine Nephrology; Registered Nurse; Student in an Organized Health Care Education/Training Program; ADMIT Internal Medicine
DX: A41.9 Sepsis, unspecified organism (principal); E43 Unspecified severe protein-calorie malnutrition; N17.9 Acute kidney failure, unspecified; N30.01 Acute cystitis with hematuria; N13.30 Unspecified hydronephrosis; C78.02 Secondary malignant neoplasm of left lung; C78.01 Secondary malignant neoplasm of right lung; E11.65 Type 2 diabetes mellitus with hyperglycemia; E66.9 Obesity, unspecified; E78.5 Hyperlipidemia, unspecified; I10 Essential (primary) hypertension; K43.9 Ventral hernia without obstruction or gangrene; D50.9 Iron deficiency anemia, unspecified; E87.6 Hypokalemia; Z53.29 Procedure and treatment not carried out because of patient's decision for other reasons; F43.10 Post-traumatic stress disorder, unspecified; F32.9 Major depressive disorder, single episode, unspecified; E87.8 Other disorders of electrolyte and fluid balance, not elsewhere classified; E83.51 Hypocalcemia; L98.491 Non-pressure chronic ulcer of skin of other sites limited to breakdown of skin; Z85.048 Personal history of other malignant neoplasm of rectum, rectosigmoid junction, and anus; Z87.440 Personal history of urinary (tract) infections; Z90.49 Acquired absence of other specified parts of digestive tract; Z87.891 Personal history of nicotine dependence; Z80.0 Family history of malignant neoplasm of digestive organs; Z82.49 Family history of ischemic heart disease and other diseases of the circulatory system; Z82.3 Family history of stroke; Z92.21 Personal history of antineoplastic chemotherapy; Z93.3 Colostomy status; Z79.899 Other long term (current) drug therapy; Z85.038 Personal history of other malignant neoplasm of large intestine; Z68.33 Body mass index [BMI] 33.0-33.9, adult

== ENCOUNTER 2018-09-10 15:42 | Inpatient (IN) | payer OTHER, MEDICARE ==
[~2018-09-10 15:42] MED LIST changes: +ASPIRIN CHEWABL81 MG PO; +ATIVAN0.5 MG PO; +DAILY VITE1 EACH PO; +FEOSOL325 MG PO; +FLUCONAZOLE100 MG PO; +GLIPIZIDE5 MG PO; +OXYCODONE HCL5 MG PO; +OXYCONTIN10 M1 PO; +SEROQUEL100 MG PO; +STIVARGA PO; +TRAD5TAB1 PO
--- NOTE | 2018-09-10 16:00 | NUR ---
PT ADMITTED UNDER [facility] AT THIS TIME.
--- NOTE | 2018-09-10 18:19 | NUR ---
PT STARTED ON MORPHINE DRIP TOBACCO ROLLER PUMP AT 3 MG/HOUR. WILL MONITOR FOR EFFECTIVENESS. AT BEDSIDE. CALL LIGHT IN REACH.
--- NOTE | 2018-09-10 18:47 | NUR ---
PT MORPHINE DRIP TITRATED FROM 3 MG TO 4 MG/HOUR DUE TO PATIENT STATING THAT 3 MG IS NOT HELPING HIS PAIN. WILL MONITOR FOR EFFECTIVENESS. PT ALSO GIVEN 4 MG ZOFRAN FOR NAUSEA AND 1 MG ATIVAN FOR ANXIETY. WILL MONITOR. AT BEDSIDE. CALL LIGHT IN REACH.
[2018-09-10 20:00] VITALS: BP 151/82
[2018-09-11] VITALS: BP 122/63
[2018-09-11 07:30] VITALS: BP 126/66
--- NOTE | 2018-09-11 10:00 | NUR ---
[facility]OSP[facility] NURSE HERE TO SEE PATIENT.
[2018-09-11 12:00] VITALS: BP 107/77
--- NOTE | 2018-09-11 12:14 | NUR ---
MEDICATED WITH ZOFRAN IV ORDERED PRIOR TO ATTEMPTING TO EAT
--- NOTE | 2018-09-11 14:40 | NUR ---
Nutritional Support Services Note: Pt under Hospice Care at home. Admitted for pain management. Dx of colon Ca. Pt is NPO at this time. Will follow as needed. Comfort measures. Jeanne Costa Rdn Ld
[2018-09-11 16:00] VITALS: BP 124/61
[2018-09-11 20:00] VITALS: BP 138/74
[2018-09-12] VITALS: BP 151/61
--- NOTE | 2018-09-12 07:05 | NUR ---
CONTACTED DR. LOERA SOMETIME LAST NIGHT REGARDING PATIENT HAVING LIQUID EMESIS OF 1200 ML, REQUESTED ORDER FOR PHENERGAN TO HELP WITH NAUSEA.
[2018-09-12 08:00] VITALS: BP 141/85
--- NOTE | 2018-09-12 08:25 | NUR ---
NO COMPLAINTS VOICED. DENIES ANY FURTHER NV AT THIS TIME. VERY HYPOACTIVE BS T/O. CALL LIGHT IN REACH. PAIN IS WELL CONTROLLED PER PT.
[2018-09-12 12:00] VITALS: BP 126/80
--- NOTE | 2018-09-12 13:25 | NUR ---
FENTANYL PATCH PLACED TO LEFT UPPER ARM AND MORPHINE DRIP TITRATED DOWN TO 2.5CC/HR PER PHARMACY RECOMMENDATIONS. WILL MONITOR. CALL LIGHT IN REACH.
[2018-09-12 16:00] VITALS: BP 169/82
--- NOTE | 2018-09-12 16:27 | NUR ---
PT TOLERATING FENTANYL PATCH WELL. MORPHINE DECREASED TO 1.5 AT THIS TIME. PER SPEEDY LOWERY, WE WILL FINISH THE CURRENT BAG OF MORPHONE AND MONITOR PT WITH CURRENT ORDERS.
[2018-09-12 20:00] VITALS: BP 154/76
--- NOTE | 2018-09-12 21:12 | NUR ---
PATIENT IS RESTING IN BED WITH NO C/O OR S/S DISTRESS NOTED AT THIS TIME. CALL LIGHT IS WITHIN REACH.
[2018-09-13] VITALS: BP 159/61
--- NOTE | 2018-09-13 00:05 | NUR ---
500mL LIQUID EMESIS EMPTIED FROM BASIN. PRN OXYCODONE PROVIDED FOR PATIENT C/O PAIN. CALL LIGHT IS WITHIN REACH. WILL MONITOR EFFECT.
[2018-09-13 08:00] VITALS: BP 153/82
--- NOTE | 2018-09-13 12:02 | NUR ---
MAN RN FROM [facility] IN TO SEE PATIENT, MED RECOMMENDATIONS GIVEN TO THIS RN AND INFORMED SPEEDY LOWERY DIRECTOR REVENUE AT THIS TIME. PATIENT ALSO AT BEDSIDE AND AWARE OF SITUATION.
[2018-09-13] MEDS ORDERED: ZOFRAN4 MG PO (12:05)
[2018-09-13] MEDS ORDERED: OXYCODONE10 MG/0.5 SL (12:05)
[2018-09-13] MEDS ORDERED: Duragesic 100100 MCG T (12:05)
--- NOTE | 2018-09-13 12:35 | NUR ---
Discharge instructions reviewed with patient/family. Patient receptive and verbalizes understanding. Follow-up care arranged. Written instructions given to patient/family. JOLYNN MAYER
[2018-09-13] MEDS ORDERED: MORPHINE S100 MG/5 M PO (14:13)
== END 2018-09-13 12:35 | disposition home or self-care (01) | DRG 872 ==
LOC: 5E 15:42
PROVIDERS: ADMIT Internal Medicine
DX: A41.9 Sepsis, unspecified organism (principal); C20 Malignant neoplasm of rectum; K56.699 Other intestinal obstruction unspecified as to partial versus complete obstruction; Z51.5 Encounter for palliative care; R65.20 Severe sepsis without septic shock; E87.6 Hypokalemia; E83.42 Hypomagnesemia; I10 Essential (primary) hypertension; E78.5 Hyperlipidemia, unspecified; E66.9 Obesity, unspecified; Z68.35 Body mass index [BMI] 35.0-35.9, adult